=== PATIENT | male | born 1970 | race American Indian/Alaskan Native ===

== ENCOUNTER 2022-07-16 21:26 | Emergency (ER) | payer SELFPAY ==
[~2022-07-16 21:26] MED LIST: EPINEPHrine 1 MG/10 ML SYRINGE ONE
--- NOTE | 2022-07-16 22:12 | Emergency Department Report ---
ED CPR HPI - General Stated Complaint: CARDIAC ARREST Time Seen by Provider: 07/16/22 21:48 - History of Present Illness Initial Comments: Patient is a 51-year-old male brought in by EMS after witnessed arrest while playing soccer. He was reportedly down for approximately 30 minutes prior to EMS arrival with bystander CPR in progress. Initial rhythm asystole on EMS arrival without change in rhythm during transport to the emergency department. ED Review of Systems ROS: Stated complaint: CARDIAC ARREST Other details as noted in HPI Comment: Unobtainable due to pts medical conditions ED Physical Exam - General General appearance: other (Unresponsive) - Head Head exam: Present: atraumatic, normocephalic - Eye Pupils: Present: other (Pupils fixed and glazed over) - ENT ENT exam: Present: other (Patient intubated. Dried coffee-ground emesis) - Respiratory Respiratory exam: Present: other (No spontaneous respirations) - Cardiovascular Cardiovascular Exam: Present: other (No palpable pulse) - GI/Abdominal GI/Abdominal exam: Present: soft. Absent: distended, tenderness - Rectal Rectal exam: Present: deferred - Neurological Exam Neurological exam: Present: other (GCS 3 T) - Skin Skin exam: Present: dry, intact, normal color, other (Extremities cool) ED Medical Decision Making - Medical Decision Making Resuscitative efforts continued upon arrival however we were unable to obtain ROSC. Patient . Critical care attestation.: If time is entered above; I have spent that time in minutes in the direct care of this critically ill patient, excluding procedure time. ED Disposition Clinical Impression: Cardiac arrest Disposition: 20 Is pt being admited?: No
== END 2022-07-17 05:05 ==
LOC: ED 21:26
DX: I46.9 Cardiac arrest, cause unspecified (principal)
CPT/HCPCS: 92950; 99285; J0171